=== PATIENT | male | born 1945 | race Caucasian/White ===

== ENCOUNTER 2017-08-28 03:16 | Day surgery (SDC) | payer MEDICARE, MEDICAID ==
[2016-08-25 11:58] VITALS: Ht 176.5 cm; Wt 75.3 kg
[2017-08-28] VITALS (7 sets, daily range): BP systolic 92–131; BP diastolic 59–80
[~2017-08-28] VITALS: Ht 176.5 cm; Wt 75.3 kg
[~2017-08-28 03:16] MED LIST: ACE325 PO; ALBU8.5H IH; AMIO200T47 PO; AMIO400T9 PO; AZIT-17 PO; AZIT1PAC23 PO; BENZ100C4 PO; CEF300 PO; CEPH-13 PO; CLIN300C99 PO; DILT-106 PO; DILT240C PO; DILT240C4 PO; DILT300C41 PO; DIPH0.5D12 IM; DOCU-202 PO; DOCU-416 PO; DOCU100C49 PO; DOXY-179 PO; FERR-53 PO; FERR220S20 PO; FERR325C2 PO; FLU IM; FLUT9.9S; FURO-45 PO; FURO-47 PO; FURO80TA70 PO; GUAI600T57 PO; HYDR-2966 PO; HYDR-385 PO; HYDR-4309 PO; HYDR25SU35 RC; HYDR25SU51 RC; IRO150 PO; LEVO25TA61 PO; LEVO50TA86 PO; LEVO75TA73 PO; LIDO5T TP; LOR5/325 PO; LOSA-50 PO; MELO-205 PO; METH125V13 IJ; NIT4 SL; OMEP-125 PO; OMEP-137 PO; OMEP-153 PO; OMEP40CA48 PO; OXYB10TA16 PO; PER PO; PNEU0.5D3 IM; POTA20TA10 PO; PRAM0.5T23 PO; PRED20TA6 PO; PROAIRPT IH; PROP10TA58 PO; RIVA20TA PO; ROPI0.2528 PO; ROPI0.5T25 PO; ROPI1TAB36 PO; ROPI2TAB28 PO; ROPI2TAB3 PO; SERT20OR6 PO; SPIR25TA78 PO; TAMS0.4C70 PO; TRA50 PO; TRAM-420 PO
[2017-08-28] MEDS ORDERED: PROPOFOL EMUL(*) 10MG/ML 20 ML 60 ML ONE (11:01)
[2017-08-28] MEDS ORDERED: LIDOCAINE MPF 1% 5 ML VIAL ONE (11:01)
[2017-08-28] MEDS ORDERED: NORMOSOL R SOLN(*) 1000 ML BAG 1,000 ML IV PRN (11:10)
[2017-08-28] MEDS ORDERED: LIDOCAINE/SOD BICARB 8.4% SYR ID ONE (11:10)
[2017-08-28] MEDS ORDERED: MIDAZOLAM 2 MG/2 ML VIAL IVP PRN (11:10)
--- NOTE | 2017-08-28 13:28 | Short(Outpt) Discharge Summary ---
Discharge Summary Reason for Hosp/Final Diag: (1) Dysphagia Status: Chronic Hospital Course & Plan: EGD with biopsies and esophageal dilation completed without problems. (2) Odynophagia Status: Chronic Departure Discharge to: Home Health Discharge Instructions Home Meds Active Scripts Levothyroxine Sodium (LEVOTHYROXINE SODIUM) 75 Mcg Tablet, 1 TAB PO QDAY, #90 TAB 4 Refills Take 1 tab every morning 30 min prior to eating. Prov:CARIN LINDSEY MD 08/20/17 Tamsulosin Hcl (TAMSULOSIN HCL) 0.4 Mg Cap.er.24h, 1 TAB PO QDAY, #90 CAP 1 Refill Prov:CARIN LINDSEY MD 08/18/17 Potassium Chloride (Potassium Chloride) 20 Meq Tablet.er, 2 TAB PO QDAY, #180 TAB 3 Refills Prov:CARIN LINDSEY MD 07/31/17 Omeprazole (OMEPRAZOLE) 20 Mg Capsule.dr, 1 CAP PO QDAY, #90 CAP Prov:CARIN LINDSEY MD 06/29/17 Furosemide (FUROSEMIDE) 80 Mg Tablet, 0.5 TAB PO DAILY, #45 TAB 3 Refills Take .5 tab daily. Prov:CARIN LINDSEY MD 06/03/17 Rivaroxaban 20 Mg (XARELTO 20 MG) 20 Mg Tablet, 1 TAB PO QDAY, #90 TAB 1 Refill Prov:BELKIS RICHMOND MD 04/20/17 Albuterol Sulfate 90 Mcg/Act (PROAIR HFA 90 MCG/ACT) 8.5 Gm Hfa.aer.ad, 2 PUFF IH TID Y for to help breathing., #1 INHALER 12 Refills Prov:RYAN TINOCO MD 10/02/14 Amiodarone Hcl (AMIODARONE HCL) 200 Mg Tablet, 1 TAB PO QDAY, #90 TAB 3 Refills Prov:RYAN TINOCO MD 08/04/14 Reported Medications Docusate Sodium (STOOL SOFTENER) 100 Mg Capsule, 1 CAP PO PRN, CAPSULE 05/29/17 Ferrous Sulfate (FERROUS SULFATE) 325 Mg Tablet, 1 TAB PO DAILY 05/29/17 Sertraline Hcl (ZOLOFT) 100 Mg Tablet, 2 TAB PO QDAY, TAB 09/01/16 Nitroglycerin (NITROSTAT) 0.4 Mg Subl, 1 TAB SL Q5MIN Y for CHEST PAIN 07/04/16 Ropinirole Hcl (ROPINIROLE HCL) 2 Mg Tablet, 1 TAB PO QID 08/06/15 Discontinued Scripts Guaifenesin (MUCINEX) 600 Mg Tablet.er, 600 MG PO BID Y for COUGH for 14 Days, # 30 TAB 0 Refills Prov:CARIN LINDSEY MD 07/01/17 Fluticasone Propionate (Flonase Allergy Relief) 9.9 Ml [place].susp, 1 SPRAY NA QDAY for 30 Days, #1 BOTTLE Prov:CAIRN LINDSEY MD 07/01/17 Follow up Referrals: General Surgery - 09/04/17 @ Surgery, General with Francisca Conti Md You have a follow up appointment scheduled with Dr. Conti on 09/04/17, at 1:30pm. Diet: Regular Activity: As Tolerated Special Instructions: You can restart the Xarelto on 08/30/17. Don't start it before then as I performed biopsies and would worry about the biopsy sites bleeding. Problem Qualifiers (1) Dysphagia: Dysphagia type: pharyngoesophageal phase Qualified Codes: R13.14 - Dysphagia , pharyngoesophageal phase FRANCISCA CONTI MD Aug 28, 2017 13:28
[2017-09-01] MEDS ORDERED: AMIO200T47 PO (09:55)
[2017-09-01] MEDS ORDERED: ROPI2TAB28 PO (09:55)
[2017-09-23] MEDS ORDERED: ALBU8.5H IH (15:44)
[2017-09-25] MEDS ORDERED: OMEP-125 PO (17:27)
[2017-10-09] MEDS ORDERED: CYAN500T38 PO (14:45)
== END 2017-08-28 14:50 | disposition home or self-care (01) ==
LOC: OR 03:16
PROVIDERS: ATTEND Surgery
DX: R10.13 Epigastric pain (principal)
CPT/HCPCS: 43239; 43248; 88305; J2001; J2704

== ENCOUNTER → 2017-10-28 | Outpatient (CLI) | payer MEDICARE, MEDICAID ==
[2016-08-25 11:58] VITALS: BMI 30.3
[~2017-10-28] MED LIST changes: +ACET500T68 PO; +CYAN500T38 PO; +GABA-547 PO; +OXYC5CAP21 PO; +SERT-173 PO; -SERT20OR6 PO
--- NOTE | 2017-10-28 17:15 | RADIOLOGY IMAGING REPORT ---
FACILITY: [facility] [place] PATIENT NAME: Hernan Mcknight : 1945 MR: [id number] V: [id number] EXAM DATE: ORDERING PHYSICIAN: BELKIS RICHMOND TECHNOLOGIST: Location: [facility] [place] Patient: Hernan Mcknight : 1945 Visit/Account:[id number] Date of Sevice: 10/28/2017 Venous Doppler ultrasound left lower extremity Indication: Edema, redness and ulcer in the left lower extremity.. Comparison: None Available Findings: Duplex Doppler and color flow imaging was performed. The common femoral, femoral, and popl iteal veins are all patent and compressible with normal Doppler wave forms. There are normal respons es to augmentation. The posterior tibial and peroneal veins are patent in the calf. The proximal greater saphenous vein is also normal. Substance tissues show edema in the lower leg. A prominent lymph node is seen in the left groin which is nonspecific. IMPRESSION: 1. No evidence of deep venous thrombosis of the left lower extremity. Report Dictated By: Jameson Samano at 10/28/2017 5:09 PM Report E-Signed By: Jameson Samano at 10/28/2017 5:12 PM WSN:[id number]
[2017-10-28 17:18] LABS: PLATELET COUNT, AUTOMATED 227 K/uL (150-450)
== END ==
LOC: LAB 15:35
PROVIDERS: ATTEND Internal Medicine
DX: D64.9 Anemia, unspecified (principal); I48.91 Unspecified atrial fibrillation; R60.9 Edema, unspecified; I10 Essential (primary) hypertension; R06.00 Dyspnea, unspecified; I87.312 Chronic venous hypertension (idiopathic) with ulcer of left lower extremity; R79.89 Other specified abnormal findings of blood chemistry
CPT/HCPCS: 36415; 82040; 82247; 82310; 82374; 82435; 82565; 82947; 83036; 83880; 84075; 84132; 84155; 84295; 84443; 84450; 84460; 84520; 85025

== ENCOUNTER → 2017-11-09 | Outpatient (CLI) | payer MEDICARE, MEDICAID ==
[2016-08-25 11:58] VITALS: BMI 30.3
== END ==
LOC: LAB 08:08
PROVIDERS: ATTEND Family Medicine
DX: I10 Essential (primary) hypertension (principal)
CPT/HCPCS: 36415; 82310; 82374; 82435; 82565; 82947; 84132; 84295; 84520

== ENCOUNTER → 2017-11-25 | Outpatient (CLI) | payer MEDICARE, MEDICAID ==
[2016-08-25 11:58] VITALS: BMI 30.3
== END ==
LOC: LAB 09:26
PROVIDERS: ATTEND Family Medicine
DX: I10 Essential (primary) hypertension (principal)
CPT/HCPCS: 36415; 82310; 82374; 82435; 82565; 82947; 84132; 84295; 84520

== ENCOUNTER 2017-12-14 11:06 | Outpatient (RCR) | payer MEDICARE, MEDICAID ==
[2016-08-25 11:58] VITALS: BMI 30.3
--- NOTE | 2017-09-30 15:53 | PT INITIAL EVALUATION ---
MEDICAL DIAGNOSIS: spine pain, cervical TREATMENT DIAGNOSIS: same DATE OF ONSET: 09/14/16 SUBJECTIVE: Hernan Mcknight presents to physical therapy with complaints of cervical pain and inability to lift his head out of flexion into extension. He reports that this started following a total hip placement following a fracture as he was bed ridden for many months and continued to increase the number of pillows used. He reports that he continues to have constant neck pain and rates it to be 3/10. He states that it feels better if he continues to rest his neck in flexion, which results in decreased pain. He states that the pain increases to 5/10 when he tries to move his head or neck into any extension or retraction movements. Furthermore, he reports that he has developed a venous wound/sore on his L anterior low leg and states that it has been getting worse (it is cover in eschar and appears not to be infected at this point). He states that he continues to have increased edema and does not like to wear his compression stocking. He also reports that he has been having difficulties with swallowing and as a result he has his esophageus stretch 3 weeks ago and is now able to eat and hold the food down without vomiting. He reports that the biopsies also came back negative. He reports that he has seen administrative and program specialist for his neck and he states that they cannot do anything for him other than injections that he reports did not have any effect. . . Pain location is C3-C7 central and described as Constant, achy, sore. Pain scale is 3 on a ten point pain scale. Pain is worse with cervical extension or retraction and better with cervical flexion. REHAB PROBLEM LIST: Increased Pain Decreased ROM Decreased Strength Decreased Endurance PREVIOUS MEDICAL HISTORY: See EMR OCCUPATION: Retired OBJECTIVE: Wound on L anterior low leg due to increased edema that is 100% covered in eschar and appears to be not infected at this time. Posture: He demonstrated fully flexed cervical spine, increased thoracic kyphosis, and decreased lumbar lordosis. ROM: Cervical AROM: protrusion: moderate restriction with pain, flexion: NIL with pain, retraction: major restriction with pain, extension: major restriction with pain, lateral flexion R: major restriction with pain, lateral flexion L: major restriction with pain, rotation R: major restriction with pain , and rotation L: major restriction with pain. Strength: Able to hold head 5 seconds into neutral position prior to falling back into cervical end range extension. Palpation: C3-C7 central spinous process Sensation: Intact Mobility: Modified Independent ASSESSMENT: Hernan will benefit from skilled physical therapy addressing the listed impairments to improve function and QOL. Based on his signs and symptoms , his provisional classification appears to be dysfunction into cervical extension that will take approximately 6-18 weeks to remodel (lengthening tissues) with his performing a single exercise 3 times a day along with posture correction with lumbar support. If he does so it will remodel, if he does not it will not remodel and he will continue to demonstrate these signs and symptoms forever. Short Term Goals 1 week: Pt will be independent on his home exercise program so that he can perform it at least 3 times a day to assist in the remodeling process to improve cervical mobility. 6 weeks: Pt will demonstrate cervical neck retraction and extension by 20% and be continually perform his HEP 3x a day to continue to remodel the structures in order to improve overall length and mobility with his joints and musculature surrounding his cervical spine to improve function and QOL. 12 weeks: Pt will demonstrate cervical neck retraction and extension by 50% and be continually perform his HEP 3x a day to continue to remodel the structures in order to improve overall length and mobility with his joints and musculature surrounding his cervical spine to improve function and QOL. 20 weeks: Pt will demonstrate cervical neck retraction and extension by 80% and be continually perform his HEP 3x a day to continue to remodel the structures in order to improve overall length and mobility with his joints and musculature surrounding his cervical spine to improve function and QOL. 24 weeks: Pt will demonstrate cervical neck retraction and extension by 100% and be continually perform his HEP 3x a day to continue to remodel the structures in order to improve overall length and mobility with his joints and musculature surrounding his cervical spine to improve function and QOL. Patient's Goals improve neck mobility and strength PLAN: Patient to be seen for Manual Therapy/STM/MET Strengthening/condition Range of Motion Spinal Stabilization Work Hardening/Cond Stretching Neuromuscular Re-ed Closed Chain Program Posture/Body mechanics Gait Trg/Balance Trg Home Exercise Program Therapeutic Activities 2x/Week for 4 Months If you have any questions, comments, or concerns about this report or plan, please contact me at . Thank you, Hamzah Ambrosio, PT, DPT MTDD
--- NOTE | 2017-11-03 14:46 | PT PLAN OF CARE ---
Physician: Maldonado Rueda MD Patient is being seen: 2x/week Therapist: Hamzah Ambrosio, PT, DPT Medical Diagnosis: spine pain, cervical Treatment Diagnosis: same Date of Onset: 09/14/16 Date of Initial Evaluation: 09/29/17 Date patient was last seen: 11/03/17 Number of treatments: 10 Number of cancellations/No shows: 1 INTERVENTIONS: Manual Therapy/STM/MET Strengthening/condition Range of Motion Spinal Stabilization Work Hardening/Cond Stretching Neuromuscular Re-ed Closed Chain Program Posture/Body mechanics Gait Trg/Balance Trg Home Exercise Program Therapeutic Activities GOALS: 1 week: Pt will be independent on his home exercise program so that he can perform it at least 3 times a day to assist in the remodeling process to improve cervical mobility. 6 weeks: Pt will demonstrate cervical neck retraction and extension by 20% and be continually perform his HEP 3x a day to continue to remodel the structures in order to improve overall length and mobility with his joints and musculature surrounding his cervical spine to improve function and QOL. 12 weeks : Pt will demonstrate cervical neck retraction and extension by 50% and be continually perform his HEP 3x a day to continue to remodel the structures in order to improve overall length and mobility with his joints and musculature surrounding his cervical spine to improve function and QOL. 20 weeks: Pt will demonstrate cervical neck retraction and extension by 80% and be continually perform his HEP 3x a day to continue to remodel the structures in order to improve overall length and mobility with his joints and musculature surrounding his cervical spine to improve function and QOL. 24 weeks: Pt will demonstrate cervical neck retraction and extension by 100% and be continually perform his HEP 3x a day to continue to remodel the structures in order to improve overall length and mobility with his joints and musculature surrounding his cervical spine to improve function and QOL. PATIENT'S GOAL: improve neck mobility and strength Status of Patient's Goals: Slowly progressing if at all Patient Compliance: Fair to Poor Prognosis: Fair Reasons for continuing therapy: This is a progress note for Hernan Roxnana. He reports that he has not been doing his exercise like he should due to focus on his leg wound. He reports that he continues to have cervical neck pain and rates it to be 3/10. Furthermore, he reports that the neck pain can increase to a 8/10. He has demonstrated minimal gains within PT as he continues to demonstrate dysfunction like symptoms and signs within his cervical spine as it takes an active specific exercise to be performed every 3 hours to remodel the tissue in order to recover from the current dysfunction. As a result, Hernan is not performing his exercise like he should and as a result it is going to take longer than expected. Typically it takes 6 to 18 weeks to remodel the tissues if they apply the specific active exercise every 3 hours, since, he is currently not performing his specific active exercise, I am unsure what his recovery will look like or if he will even recover since his is not becoming compliant. Posture: He demonstrated fully flexed cervical spine, increased thoracic kyphosis, and decreased lumbar lordosis. ROM: Cervical AROM: protrusion: moderate restriction with pain, flexion: NIL with pain, retraction: major restriction with pain, extension: major restriction with pain, lateral flexion R: major restriction with pain, lateral flexion L: major restriction with pain, rotation R: major restriction with pain , and rotation L: major restriction with pain. Strength: Able to hold head 5 seconds into neutral position prior to falling back into cervical end range extension. Palpation: C3-C7 central spinous process Special Tests: Mobility: Modified Independent If you have any questions, please contact me at [phone]. Thank you, Hamzah Ambrosio, PT, DPT [facility]
--- NOTE | 2017-11-07 15:26 | PT INITIAL EVALUATION ---
MEDICAL DIAGNOSIS: venous insufficiency ulcer at L) anterior and medial adair TREATMENT DIAGNOSIS: same DATE OF ONSET: 10/2017 SUBJECTIVE: Pt has been seen by this therapist previously for similar wounds along shins related to venous insufficiency. Pt generally responds well to advance wound care products followed up by compression stocking application to prevent further issues. Pt notes that he was instructed to obtain compression stockings and thought he had ordered them with [employer]. Three weeks later, pt notes that he contacted them and they stated that he needed to pay for them before they would be ordered. By that time, of course, pt's LE's had swollen more and the stockings are somewhat too small now. REHAB PROBLEM LIST: Increased Pain, open wounds at L) lower leg OCCUPATION: Retired OBJECTIVE: Non-excisional debridement completed with the use of tweezers to a depth of subcutaneous tissue in order to remove dark necrotic eschar and adhered yellow slough. Wound cleansed with sterile saline. Main portion of wound with greater depth, measures 7cm L x 6cm W x 0.4cm D, however excoriation and drainage extends along distal medial adair to a full measurement listed of 19cm L x 8cm W. This area is more superficial, measuring 0.2cm D. Absorbant layer of optilock placed in contact with largest area of wound bed and remainder of L) LE was covered with 2 stage co-flex compression wrap in a retrograde fashion for drainage management and gentle compression to address venous insufficiency. Current compression stocking maintained on R) LE for prevention of wounds on that side. ASSESSMENT: Pt would benefit from further conservative, selective debridement to remove non-viable and necrotic tissue, in order to encourage efficient wound healing while addressing venous insufficiency with compression wraps until pt's compression stockings are more appropriate. Short Term Goals 1. Pt to maintain clean, dry and intact wrap to L) LE and be compliant with protection during showers 2. Pt to obtain compression stockings to appropriate size and level of compression to progress to wearing once wound is fully healed. 3. Wound bed to demo 100% granulation with no signs or symptoms of infection noted. 4. Wound bed to fully epithelialize with no further drainage or weeping noted and pt to progress to daily use of compression stockings for prevention. Patient's Goals Wound to heal without further complication PLAN: Pt to follow up with further wound care and compression wraps twice weekly initially, with progression to compression stockings B) as wound improves. 2x/Week for up to 3 months Thank you for this referral. If you have any questions, comments, or concerns about this report or plan, please contact me at . H. Josephine Vieira, PT, MPT [facility]
--- NOTE | 2017-11-20 11:15 | PT PLAN OF CARE ---
Physician: Maldonado Rueda MD Patient is being seen: 2x/week Therapist: Hamzah Ambrosio, PT, DPT Medical Diagnosis: spine pain, cervical Treatment Diagnosis: same Date of Onset: 09/14/16 Date of Initial Evaluation: 11/05/17 Date patient was last seen: 11/19/17 Number of treatments: 13 Number of cancellations/No shows: 2 INTERVENTIONS: Manual Therapy/STM/MET Strengthening/condition Range of Motion Spinal Stabilization Work Hardening/Cond Stretching Neuromuscular Re-ed Closed Chain Program Posture/Body mechanics Gait Trg/Balance Trg Home Exercise Program Therapeutic Activities GOALS: 1 week: Pt will be independent on his home exercise program so that he can perform it at least 3 times a day to assist in the remodeling process to improve cervical mobility. 6 weeks: Pt will demonstrate cervical neck retraction and extension by 20% and be continually perform his HEP 3x a day to continue to remodel the structures in order to improve overall length and mobility with his joints and musculature surrounding his cervical spine to improve function and QOL. 12 weeks : Pt will demonstrate cervical neck retraction and extension by 50% and be continually perform his HEP 3x a day to continue to remodel the structures in order to improve overall length and mobility with his joints and musculature surrounding his cervical spine to improve function and QOL. 20 weeks: Pt will demonstrate cervical neck retraction and extension by 80% and be continually perform his HEP 3x a day to continue to remodel the structures in order to improve overall length and mobility with his joints and musculature surrounding his cervical spine to improve function and QOL. 24 weeks: Pt will demonstrate cervical neck retraction and extension by 100% and be continually perform his HEP 3x a day to continue to remodel the structures in order to improve overall length and mobility with his joints and musculature surrounding his cervical spine to improve function and QOL. PATIENT'S GOAL: improve neck mobility and strength Status of Patient's Goals: Slowly progressing if at all Patient Compliance: Fair to Poor Prognosis: Fair Reasons for continuing therapy: This is a discharge note for Hernan Roxanna. On our last visit, Hernan reports soreness from last session in his R ribcage. He reports that his rib is tender to the touch, but feels like it is improving. He , reports he is only exercising once out of the 3 times he is supposed to be exercises. Reports he has no time for the HEP. Spoke to Hernan about the possibility of using a Cervical Thoracic Orthosis 24 hours a day for 2-3 months. Hernan was not sure he could be compliant as he is not compliant currently with his HEP. Furthermore, Hernan reports that he no longer wants to do PT since he reports that he is not doing his exercises at home as prescribed and feels like he has not made any progress; furthermore, he does not want to do the brace thing to improve his signs and symptoms. However, his oncology social work , Yudi called and told us via Hernan that he was done with PT due to us mobilizing his ribs, which caused it to crack during a session of PT. Furthermore, we have not mobilized his ribs during any PT sessions. We have had him in supine and prone positions to try to decrease anterior tightness and posterior strengthening to improve his dysfunction type presentation. If we utilized hands on treatment, it was when he was laying supine and we applied extra pressure to point of discomfort/pain over his B shoulder to stretch his pectoral muscles. However, I called Hernan personally this morning and denied that report that his oncology social work, Yudi, reported and said he does not want to continue to PT since he is not making progress and is not able to do his home exercise program and does not want to utilize any bracing for a few months. As a result, he will be discharged from PT. Posture: He demonstrated fully flexed cervical spine, increased thoracic kyphosis, and decreased lumbar lordosis. ROM: Cervical AROM: protrusion: moderate restriction with pain, flexion: NIL with pain, retraction: major restriction with pain, extension: major restriction with pain, lateral flexion R: major restriction with pain, lateral flexion L: major restriction with pain, rotation R: major restriction with pain , and rotation L: major restriction with pain. Strength: Able to hold head 5 seconds into neutral position prior to falling back into cervical end range extension. Palpation: C3-C7 central spinous process Special Tests: Mobility: Modified Independent If you have any questions, please contact me at [phone]. Thank you, Hamzah Ambrosio, PT, DPT JAR[facility]D
--- NOTE | 2017-12-25 23:16 | PT PLAN OF CARE ---
Physician: Dr. Cotter Patient is being seen: Hernan Mcknight Therapist: Hever Vieira, PT, MPT Medical Diagnosis: venous insufficiency ulcer at L) anterior and medial adair Treatment Diagnosis: same Date of Onset: 11/01 Date of Initial Evaluation: 11/05/17 Date patient was last seen: 12/14/17 Number of treatments: 7 Number of cancellations/No shows: 1 INTERVENTIONS: Wound care with conservative, selective debridement and compression wraps twice weekly initially, with progression to compression stockings B) as wound improves. GOALS: 1. Pt to maintain clean, dry and intact wrap to L) LE and be compliant with protection during showers 2. Pt to obtain compression stockings to appropriate size and level of compression to progress to wearing once wound is fully healed. 3. Wound bed to demo 100% granulation with no signs or symptoms of infection noted. 4. Wound bed to fully epithelialize with no further drainage or weeping noted and pt to progress to daily use of compression stockings for prevention. PATIENT'S GOAL: Wound to heal without further complication Status of Patient's Goals: At previous visit before pt request to discharge, wound measured 4.4cm L x 3.4cm W x 0.2cm D with excellent granulation. Patient Compliance: Good overall until he determined that he should transition to home care without notifying this PT. Prognosis: Good Reasons for continuing therapy: None at this time. Pt arrived late for a visit on 12/21/17 and when he was told that the PT was also running late, pt chose to leave the clinic without notifying the staff of his choice. PT was available for his treatment within 5 minutes of pt's arrival, however, he had already called the [employer] bus for transportation and chose to leave. Pt was rescheduled later in the week on 12/25/17, at an earlier time to accomodate the busy transportation scheduled, and pt was left a message regarding this twice. Pt chose not to arrive for this appointment. When a third call was made to ensure pt's safety, pt had his caregiver return the call and inform this clinic that his home care team would be providing his wound care in the future. Original wound measurements: Main portion of wound with greater depth, measures 7cm L x 6cm W x 0.4cm D, however excoriation and drainage extends along distal medial adair to a full measurement of 19cm L x 8cm W, this area is more superficial, measuring 0.2cm D. At most recent visit 12/14/17 wound measured: 4.4cm L x 3.4cm W x 0.2cm D with improved girth. Pt had one pair of medi dual layer compression stockings to apply for edema management and prevention of future ulcers. PT's plan was to order a second pair, which insurance will cover once monthly while an open wound is present, in order to allow pt to wear a pair while he washed the other pair, ensuring the most optimal edema management. Pt is not yet due for his next set and thus, this order was not placed. Pt has been instructed in the importance of edema management, with compression, elevation and following his physician's instructions for medication management, in order to reduce the risk of future ulcers. Pt verbalized understanding at previous wound care visits. Pt has requested, through his caregiver, to be discharged from out pt wound care at this time and caregiver notes that Home healthcare plans to manage pt's wounds at this time. Thank you for this referral. If you have any questions, comments, or concerns about this report or plan, please contact me at . H. Josephine Vieira, PT, [facility]
[2017-12-28] MEDS ORDERED: FURO80TA70 PO (11:03)
== END 2017-12-14 18:00 | disposition home or self-care (01) ==
LOC: PT 11:06
PROVIDERS: ATTEND Surgery
DX: M54.2 Cervicalgia (principal); Z96.649 Presence of unspecified artificial hip joint; I87.312 Chronic venous hypertension (idiopathic) with ulcer of left lower extremity; R60.9 Edema, unspecified; I87.2 Venous insufficiency (chronic) (peripheral); L97.822 Non-pressure chronic ulcer of other part of left lower leg with fat layer exposed
CPT/HCPCS: 97162; 97163

== ENCOUNTER → 2018-01-25 | Outpatient (CLI) | payer MEDICARE, MEDICAID ==
[2016-08-25 11:58] VITALS: BMI 30.3
[2018-01-25 10:39] LABS: PLATELET COUNT, AUTOMATED 187 K/uL (150-450)
== END ==
LOC: LAB 10:22
PROVIDERS: ATTEND Family Medicine
DX: R30.0 Dysuria (principal); E53.8 Deficiency of other specified B group vitamins; I10 Essential (primary) hypertension; R73.01 Impaired fasting glucose
CPT/HCPCS: 36415; 81001; 82040; 82247; 82310; 82374; 82435; 82565; 82607; 82947; 83036; 84075; 84132; 84155; 84295; 84443; 84450; 84460; 84520; 85025

== ENCOUNTER → 2018-02-05 | Outpatient (CLI) | payer MEDICARE, MEDICAID ==
[2016-08-25 11:58] VITALS: BMI 30.3
--- NOTE | 2018-02-05 13:41 | RADIOLOGY IMAGING REPORT ---
FACILITY: [facility] PATIENT NAME: Hernan Mcknight : 1945 MR: [id number] V: [id number] EXAM DATE: ORDERING PHYSICIAN: CARIN LINDSEY TECHNOLOG[place] [facility] [place] Hernan Mck[place] : 1945 Visit/Account:[id number] Date of Sevice: 02/05/2018 Bladder ultrasound HISTORY: Determine pre and post void bladder volume. Urinary frequency. COMPARISON: None. FINDINGS: Filled bladder has a uniform wall thickness and contains no debris. Prevoid bladder volume is 121 mL . Postvoid bladder volume is 10 mL. Bilateral ureter jets are seen by color Doppler ultrasound. Normal size prostate gland, measuring 3 x 3 x 4.5 cm. IMPRESSION: Near complete bladder emptying. Report Dictated By: Eulalia Kendrick MD at 02/05/2018 1:31 PM Report E-Signed By: Eulalia Kendrick MD at 02/05/2018 1:36 PM WSN:[email or web address]
== END ==
LOC: US 02:36
PROVIDERS: ATTEND Family Medicine
DX: R35.0 Frequency of micturition (principal)
CPT/HCPCS: 76705

== ENCOUNTER → 2018-03-25 | Outpatient (CLI) | payer MEDICARE, MEDICAID ==
[2016-08-25 11:58] VITALS: BMI 30.3
[~2018-03-25] MED LIST changes: -AMIO200T47 PO; +AMIO200T49 PO; +DUL20 PO; -SPIR25TA78 PO; +SPIR25TA80 PO
== END ==
LOC: LAB 10:21
PROVIDERS: ATTEND Family Medicine
DX: E03.9 Hypothyroidism, unspecified (principal)
CPT/HCPCS: 36415; 82310; 82374; 82435; 82565; 82947; 84132; 84295; 84443; 84520

== ENCOUNTER → 2018-07-28 | Outpatient (CLI) | payer MEDICARE, MEDICAID ==
[2016-08-25 11:58] VITALS: BMI 30.3
[~2018-07-28] MED LIST changes: -DILT300C41 PO; +DILT300C6 PO; -HYDR-4309 PO; +HYDR-653 PO; +PNEI IJ; -ROPI0.2528 PO; +ROPI0.2530 PO
[2018-07-28 09:18] LABS: PLATELET COUNT, AUTOMATED 189 K/uL (150-450)
== END ==
LOC: LAB 08:49
PROVIDERS: ATTEND Family Medicine
DX: E03.9 Hypothyroidism, unspecified (principal); I10 Essential (primary) hypertension
CPT/HCPCS: 36415; 82040; 82247; 82310; 82374; 82435; 82565; 82947; 84075; 84132; 84155; 84295; 84443; 84450; 84460; 84520; 85025

== ENCOUNTER → 2018-09-16 | Outpatient (CLI) | payer MEDICARE, MEDICAID ==
[2016-08-25 11:58] VITALS: BMI 30.3
== END ==
LOC: RESP 01:03
PROVIDERS: ATTEND Family Medicine
DX: J44.9 Chronic obstructive pulmonary disease, unspecified (principal); J98.4 Other disorders of lung
CPT/HCPCS: 36415; 82310; 82374; 82435; 82565; 82947; 84132; 84295; 84520; 94060; 94726; 94729

== ENCOUNTER → 2018-09-28 | Outpatient (CLI) | payer MEDICARE, MEDICAID ==
[2016-08-25 11:58] VITALS: BMI 30.3
[~2018-09-28] MED LIST changes: +POLY17PO25 PO; +TRIA15CR40 TP
== END ==
LOC: LAB 11:00
PROVIDERS: ATTEND Urology
DX: R10.31 Right lower quadrant pain (principal); R30.0 Dysuria
CPT/HCPCS: 36415; 84153

== ENCOUNTER → 2018-09-28 | Outpatient (CLI) | payer MEDICARE, MEDICAID ==
[2016-08-25 11:58] VITALS: BMI 30.3
--- NOTE | 2018-09-28 11:43 | RADIOLOGY IMAGING REPORT ---
FACILITY: [facility] [place] PATIENT NAME: Hernan Mcknight : 1945 MR: [id number] V: [id number] EXAM DATE: ORDERING PHYSICIAN: FRANCISCA CONTI TECHNOLOGIST: Location: [facility] Patient: Hernan Mcknight : 1945 Visit/Account:[id number] Date of Sevice: 09/28/2018 GALLBLADDER HISTORY: RUQ Pain COMPARISON: None. FINDINGS: Gallbladder: Unremarkable; no stones or sludge. Liver: Mild hepatomegaly with liver measuring 18 cm in length the liver appears of normal echogenicit y Common duct: Normal, 3.2 mm diameter. Pancreas: Not well seen due to overlying bowel gas Right kidney: Right kidney appears unremarkable measuring 9.3 cm in length Upper abdominal aorta and IVC: Patent. Ascites: None visualized. IMPRESSION: Mild hepatomegaly however the liver appears of normal echogenicity Pancreas not well seen due to overlying bowel gas Report Dictated By: Chanelle Monroe MD at 09/28/2018 11:36 AM Report E-Signed By: Chanelle Monroe MD at 09/28/2018 11:39 AM WSN:[email or web address]
== END ==
LOC: US 01:19
PROVIDERS: ATTEND Family Medicine
DX: R16.0 Hepatomegaly, not elsewhere classified (principal)
CPT/HCPCS: 76705

== ENCOUNTER 2018-10-26 09:00 | Outpatient (RCR) | payer MEDICARE, MEDICAID ==
[2016-08-25 11:58] VITALS: BMI 30.3
[~2018-10-26 09:00] MED LIST changes: +CIPR-214 PO; +MIRA50TA PO
== END 2018-10-26 18:00 | disposition home or self-care (01) ==
LOC: CARD 09:00
PROVIDERS: ATTEND Family Medicine
DX: J44.9 Chronic obstructive pulmonary disease, unspecified (principal)
CPT/HCPCS: G0424

== ENCOUNTER → 2019-04-06 | Outpatient (CLI) | payer MEDICARE, MEDICAID ==
[2016-08-25 11:58] VITALS: BMI 30.3
[~2019-04-06] MED LIST changes: -CYAN500T38 PO; +CYAN500T39 PO; -DIPH0.5D12 IM; +DIPH0.5S2 IM; -OMEP-125 PO; +OMEP-126 PO; +TRIA15OI20 TP
[2019-04-06 11:28] LABS: PLATELET COUNT, AUTOMATED 187 K/uL (150-450)
== END ==
LOC: LAB 08:32
PROVIDERS: ATTEND Family Medicine
DX: J44.9 Chronic obstructive pulmonary disease, unspecified (principal); E03.9 Hypothyroidism, unspecified; I10 Essential (primary) hypertension
CPT/HCPCS: 36415; 82040; 82247; 82310; 82374; 82435; 82565; 82947; 84075; 84132; 84155; 84295; 84443; 84450; 84460; 84520; 85025